=== PATIENT | male | born 1965 | race Caucasian/White ===

== ENCOUNTER 2019-10-02 20:29 | Emergency (ER) | payer MEDICAID ==
[~2019-10-02] VITALS: Ht 175.3 cm; Wt 68.0 kg
[2019-10-02 20:41] VITALS: BP 119/84
[2019-10-02 21:23] LABS: BASOPHILS # (AUTO) 0.03 x10^3/uL (0-0.1); BASOPHILS % (AUTO) 0 % (0-1); EOSINOPHILS # (AUTO) 0.31 x10^3/uL (0-0.4); EOSINOPHILS % (AUTO) 4 % (1-7); LYMPHOCYTES # (AUTO) 2.05 x10^3/uL (1-3.4); LYMPHOCYTES % (AUTO) 28 % (22-44); MD NO; MEAN CORPUSCULAR HEMOGLOBIN 31.4 pg (27.5-34.5); MEAN CORPUSCULAR HGB CONC 33.7 g/dL (33.2-36.2); MEAN CORPUSCULAR VOLUME 93.1 fL (81-97); MEAN PLATELET VOLUME 7.4 fL (7.4-10.4); MONOCYTES # (AUTO) 0.39 x10^3/uL (0.2-0.8); MONOCYTES % (AUTO) 5 % (2-9); NEUTROPHILS # (AUTO) 4.62 x10^3/uL (1.8-6.8); NEUTROPHILS % (AUTO) 63 % (42-75); PLATELET COUNT 244 x10^3/uL (130-400); RED BLOOD COUNT 5.03 x10^6/uL (4.38-5.82); RED CELL DISTRIBUTION WIDTH 13.5 % (9.4-14.8)
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
[2019-10-02 21:30] LABS: ALANINE AMINOTRANSFERASE 49 U/L (12-78); ALBUMIN 3.6 g/dL (3.4-5.0); ANION GAP 8 mmol/L (5-15); CHLORIDE 106 mmol/L (98-107); CREATININE 1.01 mg/dL (0.7-1.3); SALICYLATE LEVEL 2.5 mg/dL (2.8-20.0)
[2019-10-02 21:41] LABS: ALKALINE PHOSPHATASE 70 U/L (45-117); BILIRUBIN,TOTAL 0.3 mg/dL (0.2-1.0); TOTAL PROTEIN 7.6 g/dL (6.4-8.2)
--- NOTE | 2019-10-02 23:20 | NUR ---
pt resting on gurney, respirations even and unlabored. water, blanket and a pillow provided. sitter at doorway for frequent check. pt calm, cooperative and polite.
[2019-10-02 23:26] LABS: AMPHETAMINE SCREEN, URINE Positive (Negative); BARBITURATE SCREEN, URINE Negative (Negative); BENZODIAZEPINE SCREEN, URINE Negative (Negative); CANNABINOID SCREEN, URINE Negative (Negative); COCAINE SCREEN, URINE Negative (Negative); METHADONE SCREEN, URINE Negative (Negative); OPIATE SCREEN, URINE Negative (Negative)
--- NOTE | 2019-10-03 01:19 | NUR ---
REPORT TO MALOU Mckeon RN
--- NOTE | 2019-10-03 01:55 | NUR ---
Telepsych monitor at bedside.
--- NOTE | 2019-10-03 04:39 | NUR ---
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 PT. WITH [employer] INSURANCE; [facility] UNABLE TO ACCEPT THIS INSURANCE. WILL FAX PACKET TO [facility] AND [facility].
--- NOTE | 2019-10-03 04:48 | NUR ---
PT RESTING IN BED, NAD NOTED, SITTER CONTINUES IN DIRECT LINE OF SIGHT.
--- NOTE | 2019-10-03 04:59 | NUR ---
TP. PT REFUSED AT [place] DUE TO INSURANCE
--- NOTE | 2019-10-03 05:05 | NUR ---
REPORT RECEIVED FROM MALOU Mckeon RN. PT RESTING ON GURNEY WITH EYES CLOSED, RESPIRATIONS EVEN AND NONLABORED. SITTER AT , ROOM SECURED.
--- NOTE | 2019-10-03 06:16 | NUR ---
PT RESTING ON GURNEY WITH EYES CLOSED, RESPIRATIONS EVEN AND NONLABORED. ROOM SECURED.
--- NOTE | 2019-10-03 06:50 | NUR ---
REPORT FROM [facility]
--- NOTE | 2019-10-03 06:59 | NUR ---
MEAL TRAY ORDERED. SITTER PRESENT. PT SLEEPING
--- NOTE | 2019-10-03 08:10 | NUR ---
Break RN note: Pt resting in bed, NADN, provided blanket per request. Hospital bed requested for pt. Room is secured, sitter within eyesight of pt, all safety measures observed.
--- NOTE | 2019-10-03 08:18 | NUR ---
GIVEN MEAL TRAY, PT CONSUMED 100%, ALL BELONGINGS IN BAG IN LOCKER. ROOM SECURED. SITTER PRESENT
--- NOTE | 2019-10-03 09:45 | NUR ---
report to [facility]
--- NOTE | 2019-10-03 11:22 | NUR ---
PT SLEEPING. SITTER PRESENT
--- NOTE | 2019-10-03 12:15 | NUR ---
MEAL TRAY GIVEN
--- NOTE | 2019-10-03 12:38 | NUR ---
REPORT TO VIANNEY
--- NOTE | 2019-10-03 12:40 | NUR ---
PT DC TO [facility]. ALL BELONGINGS W PT
== END 2019-10-03 12:41 ==
LOC: ED 10-03 02:40
DX: F15.150 Other stimulant abuse with stimulant-induced psychotic disorder with delusions (principal); Z72.9 Problem related to lifestyle, unspecified; I10 Essential (primary) hypertension; F17.200 Nicotine dependence, unspecified, uncomplicated
CPT/HCPCS: 36415; 80053; 80307; 84443; 85025; 99285